=== PATIENT | male | born 1975 | race Caucasian/White ===

== ENCOUNTER → 2017-01-30 | Outpatient (CLI) | payer BC | LOC: RAD 12:35 | DX: M79.672 Pain in left foot (principal) ==

== ENCOUNTER → 2017-02-05 | Outpatient (CLI) | payer BC | LOC: LAB 13:29 | DX: M10.472 Other secondary gout, left ankle and foot (principal) ==

== ENCOUNTER → 2018-04-16 | Outpatient (CLI) | payer BC | LOC: RAD 17:13 | DX: M19.072 Primary osteoarthritis, left ankle and foot (principal) ==

== ENCOUNTER → 2022-04-29 | Outpatient (CLI) | payer BC | LOC: RAD 09:11 | DX: M25.512 Pain in left shoulder (principal) ==

== ENCOUNTER → 2022-09-09 | Outpatient (CLI) | payer BC | LOC: RAD 09:05 | DX: I10 Essential (primary) hypertension (principal) ==

== ENCOUNTER 2023-09-03 22:22 | Emergency (ER) | payer BC ==
[~2023-09-03] VITALS: Ht 185.4 cm; Wt 109.1 kg
[2023-09-03] MEDS ORDERED: MELOXICAM5 MG PO (22:36)
[2023-09-03] MEDS ORDERED: COZAAR25 M1 PO (22:36)
[2023-09-03] MEDS ORDERED: MORGIDOX 1X100100 MG PO (23:41)
[2023-09-04 00:05] VITALS: BP 139/89
== END 2023-09-04 00:05 | disposition home or self-care (01) ==
LOC: ED 22:22
DX: S02.2XXA Fracture of nasal bones, initial encounter for closed fracture (principal); W50.0XXA Accidental hit or strike by another person, initial encounter; Y93.72 Activity, wrestling